=== PATIENT | female | born 1940 | race Caucasian/White ===

== ENCOUNTER 2017-10-12 18:59 | Emergency (ER) | payer MEDICARE, OTHER ==
[~2017-10-12] VITALS: Ht 157.5 cm; Wt 67.9 kg
[~2017-10-12 18:59] MED LIST: IBUP100S PO; LEVO.075 PO; LORT5TAB PO
[2017-10-12 19:10] VITALS: BP 163/75; PULSE 60; RESP 16; TEMP 97.9; O2SAT 97
== END 2017-10-12 21:08 | disposition left against medical advice (07) ==
LOC: PHED 18:59
DX: M25.461 Effusion, right knee (principal); M25.561 Pain in right knee; M79.651 Pain in right thigh
CPT/HCPCS: 99281

== ENCOUNTER 2017-10-18 10:32 | Emergency (ER) | payer MEDICARE, OTHER ==
[~2017-10-18] VITALS: Ht 157.5 cm; Wt 67.8 kg
[2017-10-18 10:33] VITALS: BP 149/71; PULSE 64; RESP 18; TEMP 97.7; O2SAT 96
[2017-10-18] MEDS ORDERED: ASPI81CH6 CHEW (10:57)
[2017-10-18] MEDS ORDERED: SYNT25TA PO (10:57)
--- NOTE | 2017-10-18 11:19 | PD ---
HPI Chief Complaint: Skin Problem Time Seen by Provider: 10:43 Travel History International Travel<30 days: No Contact w/Intl Traveler<30days: No Traveled to known affect area: No History of Present Illness HPI 77-year-old female is complaining of pain in her right thigh. She has a history of varicose veins and she has multiple veins on the right side. She feels like they have become inflamed. He has developed a knot in the medial aspect of the right thigh. it is red and tender. She has not been short of breath. She has no history of DVT. She is not on any blood thinner. She has been taking ibuprofen 600 mg every 12 hours PFSH Past Medical History Cardiovascular Problems: Yes Diminished Hearing: No Thyroid Disease: Yes Tetanus Vaccination: Unknown Influenza Vaccination: No ?: Not Past Surgical History Appendectomy: Yes Cholecystectomy: Yes Hysterectomy: Yes Other Surgery: Yes (CAMACHO BIG TOE NAILS REMOVED) Social History Alcohol Use: No Tobacco Use: No Substance Use: No Allergies-Medications (Allergen,Severity, Reaction): Coded Allergies: morphine (Verified Allergy, Intermediate, NAUSEA, 10/18/17) acetaminophen (Verified Allergy, Unknown, NAUSEA, 10/18/17) codeine (Verified Allergy, Unknown, NAUSEA AND ITCHING, 10/18/17) propoxyphene (Verified Allergy, Unknown, NAUSEA, 10/18/17) Sulfa (Sulfonamide Antibiotics) (Verified Adverse Reaction, Severe, NAUSEA , 10/18/17) Reported Meds & Prescriptions Reported Meds & Active Scripts Active Reported Aspirin Low Dose (Aspirin) 81 Mg Chew 81 Mg CHEW DAILY Synthroid (Levothyroxine Sodium) 25 Mcg Tab Unknown Dose PO DAILY Review of Systems General / Constitutional: No: Fever, Chills Eyes: No: Diploplia, Blurred Vision HENT: No: Headaches, Vertigo Cardiovascular: No: Chest Pain or Discomfort Respiratory: No: Cough, Shortness of Breath Gastrointestinal: No: Vomiting, Diarrhea Genitourinary: No: Urgency, Frequency Musculoskeletal: No: Myalgias, Arthralgias Skin: Positive Rash, Positive Lumps, No Itching Neurologic: No: Weakness Hematologic/Lymphatic: No: Easy Bruising Physical Exam Narrative GENERAL: Well-developed female SKIN: Focused skin assessment warm/dry. HEAD: Atraumatic. Normocephalic. EYES: Pupils equal and round. No scleral icterus. No injection or drainage. ENT: No nasal bleeding or discharge. Mucous membranes pink and moist. NECK: Trachea midline. No JVD. CARDIOVASCULAR: Regular rate and rhythm. No murmur appreciated. RESPIRATORY: No accessory muscle use. Clear to auscultation. Breath sounds equal bilaterally. GASTROINTESTINAL: Abdomen soft, non-tender, nondistended. Hepatic and splenic margins not palpable. MUSCULOSKELETAL: No obvious deformities. No clubbing. No cyanosis. No edema. Bilateral varicose veins. On the right leg there is an area of erythema on the medial PSYCHIATRIC: Appropriate mood and affect; insight and judgment normal. 5 Data Data Last Documented VS Vital Signs Date Time Temp Pulse Resp B/P (MAP) Pulse Ox O2 Delivery O2 Flow Rate FiO2 10/18/17 10:33 97.7 64 18 149/71 (97) 96 Orders Orders Us Leg Venous Doppler (10/18/17 10:49) [facility] Medical Decision Making Medical Screen Exam Complete: Yes Emergency Medical Condition: Yes Medical Record Reviewed: Yes Differential Diagnosis Differential includes superficial phlebitis, deep vein thrombosis Narrative Course Ultrasound shows clot in the midportion of the saphenous vein. There is no deep vein thrombosis noted. I will recommend elevation, she does have some erythema in this area and she will be placed on doxycycline. She is to continue the Motrin Diagnosis Primary Impression: Superficial thrombophlebitis Scripts Doxycycline Hyclate (Doxycycline Hyclate) 100 Mg Cap 100 MG PO BID for Infection for 7 Days, #14 CAP 0 Refills Prov: Tristan Segura MD 10/18/17 Disposition: 01 DISCHARGE HOME Condition: Stable Tristan Segura MD Oct 18, 2017 11:19
--- NOTE | 2017-10-18 11:59 | RADRPT ---
EXAM DATE/TIME: 10/18/2017 11:35 [facility] COMPARISON: No previous studies available for comparison. INDICATIONS : Right leg pain. MEDICAL HISTORY : Thryoid disease. Varicose veins. SURGICAL HISTORY : Appendectomy. Cholecystectomy. Hysterectomy. Toe nail surgery. ENCOUNTER: Initial ACUITY: 2 day PAIN SCORE: 8/10 LOCATION: Right leg. TECHNIQUE: Venous ultrasound of the leg was performed from the inguinal ligament to the proximal calf. Real-kavon e, color Doppler and spectral tracing, compression and augmentation techniques were used. FINDINGS: Thrombus is seen in the greater saphenous vein mid thigh. The deep venous system from the upper tial veins through the inguinal ligament is patent. There is no thrombus identified the deep venous system below the knee. CONCLUSION: Thrombosed greater saphenous vein mid thigh. The deep venous system is patent. Festus Turner MD FACR on October 18, 2017 at 11:56 Board Certified Radiologist. This report was verified electronically.
[2017-10-18] MEDS ORDERED: DOXY100C PO (12:30)
== END 2017-10-18 12:35 | disposition home or self-care (01) ==
LOC: PHED 10:32
DX: I80.01 Phlebitis and thrombophlebitis of superficial vessels of right lower extremity (principal); E07.9 Disorder of thyroid, unspecified
CPT/HCPCS: 93971; 99284